=== PATIENT | female | born 1995 | race Caucasian/White ===

== ENCOUNTER 2017-04-30 13:21 | Emergency (ER) | payer BC, MEDICAID ==
[2017-04-30 13:34] VITALS: BP 127/77
--- NOTE | 2017-04-30 13:58 | EDM.PDOC ---
ED HPI GENERAL MEDICAL PROBLEM - General Chief Complaint: ENT Problem Stated Complaint: TOOTH PAIN Time Seen by Provider: 04/30/17 13:40 Source of Information: Reports: Patient, RN History Limitations: Reports: No Limitations - History of Present Illness INITIAL COMMENTS - FREE TEXT/NARRATIVE: L lower jaw tooth pain for a few days. Is in her first trimester of an IUP. No fever or facial swelling. Onset: Gradual Onset Date: 04/27/17 Duration: Day(s):, Getting Worse Location: Reports: Face (L lower jaw) Quality: Reports: Ache Severity: Moderate Improves with: Reports: None Worsens with: Reports: Other (time) Context: Reports: Other (first trimester IUP) Associated Symptoms: Reports: No Other Symptoms. Denies: Fever/Chills Treatments LEAD C DEVELOPER: Reports: Other (see below) (none) - Related Data Allergies Allergy/AdvReac Type Severity Reaction Status Date / Time No Known Allergies Allergy Verified 06/08/14 11:25 Home Meds: Home Meds Hydrocodone/Acetaminophen [Hydrocodon-Acetaminophen 5-325] 1 - 2 each PO Q4HR PRN #14 tablet 04/30/17 [Rx] Penicillin V Potassium [IJP: Penicillin V Potassium] 500 mg PO .EVERY 6 HOURS # 40 tab 04/30/17 [Rx] Vits #93/Iron Fum/FA [ Formula Tablet] 1 tab PO DAILY 04/30/17 [History] Past Medical History - Past Health History Medical/Surgical History: Denies Medical/Surgical History [employer]ING [employer]ER History: Reports: Other OB/BYN History: at 17 wks edc oct 07 Social & Family History - Tobacco Use Smoking Status *Q: Never Smoker Second Hand Smoke Exposure: No - Alcohol Use Days Per Week of Alcohol Use: 0 ED ROS ENT - Review of Systems Review Of Systems: See Below Constitutional: Reports: No Symptoms HEENT: Reports: Dental Pain. Denies: Ear Discharge, Ear Pain, Eye Discharge, Eye Pain, Hearing Loss, Nose Pain, Rhinitis, Sinus Problem, Throat Pain, Throat Swelling Respiratory: Reports: No Symptoms Cardiovascular: Reports: No Symptoms Skin: Reports: No Symptoms Neurological: Reports: No Symptoms ED EXAM, ENT - Physical Exam Exam: See Below Exam Limited By: No Limitations General Appearance: Alert, WD/WN, No Apparent Distress Eye Exam: Bilateral Eye: Normal Inspection Ears: Normal External Exam, Normal Canal, Hearing Grossly Normal, Normal TMs Nose: Normal Inspection, Normal Mucousa, No Blood Mouth/Throat: Normal Inspection, Normal Lips, Normal Oropharynx, Normal Teeth, Dental Pain, Dental Tenderness, Other (L lower posterior most molar has a tooth colored filling. This tooth is tender with percussion.) Head: Atraumatic, Normocephalic. No: Facial Swelling Neck: Normal Inspection, Supple, Non-Tender. No: Lymphadenopathy (R), Lymphadenopathy (L) Respiratory/Chest: No Respiratory Distress, Lungs Clear Course - Vital Signs Last Recorded V/S: Last Vital Signs Temp 36.7 C 04/30/17 13:40 Pulse 105 H 04/30/17 13:40 Resp 16 04/30/17 13:40 BP 127/77 04/30/17 13:40 Pulse Ox 99 04/30/17 13:40 Departure - Departure Time of Disposition: 13:57 Disposition: Home, Self-Care 01 Condition: Good Clinical Impression: Pain, dental - Discharge Information Prescriptions: Hydrocodone/Acetaminophen [Hydrocodon-Acetaminophen 5-325] 1 - 2 each PO Q4HR PRN #14 tablet PRN Reason: Pain Penicillin V Potassium [IJP: Penicillin V Potassium] 500 mg PO .EVERY 6 HOURS # 40 tab Referrals: Harshal Walter MD [Primary Care Provider] - Forms: ED Department Discharge Additional Instructions: Use penicillin as directed. Take either acetaminophen or hydrocodone with acetaminophen as needed for pain relief. See your dentist for recheck susie.
== END 2017-04-30 14:00 | disposition home or self-care (01) ==
LOC: JP.ED 13:21
DX: O99.89 Other specified diseases and conditions complicating pregnancy, childbirth and the puerperium (principal); K08.89 Other specified disorders of teeth and supporting structures
CPT/HCPCS: 99283

== ENCOUNTER 2023-01-28 11:04 | Emergency (ER) | payer MEDICAID, OTHER ==
[2023-01-28] MEDS ORDERED: Ondansetron 4 MG/2 ML SDV IVPUSH ONE (12:09)
[2023-01-28] MEDS ORDERED: Sodium Chloride 0.9% 1,000 ML IV SCH ×2 (12:15→14:00)
[2023-01-28 12:22] LABS: HEMATOCRIT 32.2 % (34.3-46.0); HEMOGLOBIN 11.3 g/dL (11.2-15.5); MEAN CORPUSCULAR HEMOGLOBIN 29.7 pg (31.6-35.5); MEAN CORPUSCULAR HGB CONC 35.1 g/dL (31.6-35.5); MEAN CORPUSCULAR VOLUME 84.5 fL (81.4-99.0); RED BLOOD CELL COUNT 3.81 M/uL (3.77-5.24)
[2023-01-28 12:41] LABS: PROTHROMBIN TIME 10.4 sec (9.2-10.6)
[2023-01-28 12:45] LABS: A/G RATIO 1.1 (1.2-2.2); ALANINE AMINOTRANSFERASE,ALT 10 U/L (12-78); ALBUMIN 3.2 g/dL (3.4-5.0); ALKALINE PHOSPHATASE 51 U/L (46-116); ASPARTATE AMNIOTRANSFERASE,AST 14 U/L (15-37); BILIRUBIN TOTAL 0.4 mg/dL (0.2-1.0); BLOOD UREA NITROGEN,BUN 8 mg/dL (7-18); CALCIUM 7.7 mg/dL (8.5-10.1); CARBON DIOXIDE,CO2 22 mmol/L (21-32); CHLORIDE,CL 105 mmol/L (100-108); CREATININE 0.6 mg/dL (0.6-1.0); EST CRCL DRUG DOSING (CG) 133.01 mL/min; ESTIMATED GFR 127 mL/min (>60); GLUCOSE RANDOM 100 mg/dL (74-106); SODIUM,NA 137 mmol/L (140-148)
[2023-01-28 14:43] VITALS: BP 94/48; PULSE 74
== END 2023-01-28 15:46 | disposition home or self-care (01) ==
LOC: JP.ED 11:04
DX: O03.9 Complete or unspecified spontaneous abortion without complication (principal)
CPT/HCPCS: 36415; 80053; 83605; 85027; 85610; 96361; 96374; 99284; J2405; J7030